=== PATIENT | male | born 1965 | race Two or more races ===

== ENCOUNTER 2021-02-24 15:46 | Observation (INO) | payer BC ==
[~2021-02-24] VITALS: Ht 180.3 cm; Wt 106.5 kg
--- NOTE | 2021-02-24 16:07 | PHYS DOC ---
Past History Past Medical History: Hypertension Adult General Chief Complaint Chief Complaint: FLU SYMPTOM HPI HPI Patient is a 65-year-old male who presents for lightheadedness. Onset was this morning shortly after waking up. Nothing known makes better or worse. States he has hardly eaten all day because of generalized feelings of nausea without any emesis. He has no known sick contacts or recent travel. Associated symptoms include generalized weakness, lightheadedness, subjective diaphoresis and chills, nausea. He denies measured fever greater than 100.4, vision changes, chest pain, shortness of breath, abdominal pain, motor or sensory fu nction changes, UTI-like symptoms, neuro symptoms. Only medical condition he sees and is currently being treated for by PCP is hypertension for which he takes lisinopril, he reports taking this today. Also states he is a former smoker and currently abuses alcohol most days, admits to drinking 1 pint of liquor nightly withdrawal last drink yesterday. Denies ever suffering alcoholic withdrawals, has never been hospitalized for this before Review of Systems Review of Systems Fourteen body systems of review of systems have been reviewed. See HPI for pertinent positives and negative responses, other echeverria all other systems are negative, non-pertinent or non-contributory Physical Exam Physical Exam Constitutional: Well developed, well nourished, no acute distress, non-toxic appearance. HENT: Normocephalic, atraumatic, bilateral external ears normal, oropharynx moist, no oral exudates, nose normal. Eyes: PERRLA, EOMI, conjunctiva normal, no discharge. Neck: Normal range of motion, no tenderness, supple, no stridor. Cardiovascular: Heart rate regular, sinus rhythm, no murmurs rubs or gallops Lungs & Thorax: Bilateral breath sounds clear to auscultation Abdomen: Bowel sounds normal, soft, no tenderness, no masses, no pulsatile masses. Nonsurgical abdomen, no peritoneal signs Skin: Warm, dry, no erythema, no rash. Back: No tenderness, no CVA tenderness. Extremities: No tenderness, no cyanosis, no clubbing, ROM intact, no edema. Neurologic: Alert and oriented X 3, grossly normal motor & sensory function, no focal deficits noted. Psychologic: Affect normal, judgement normal, mood normal. Current Patient Data Vital Signs Vital Signs Date Time Temp Pulse Resp B/P (MAP) Pulse Ox O2 Delivery O2 Flow Rate FiO2 02/24/21 15:46 98.2 79 20 178/87 (117) 96 Room Air Vital Signs Date Time Temp Pulse Resp B/P (MAP) Pulse Ox O2 Delivery O2 Flow Rate FiO2 02/24/21 15:46 98.2 79 20 178/87 (117) 96 Room Air Lab Results Laboratory Tests Test 02/24/21 16:10 02/24/21 16:28 Glucose (Fingerstick) 145 mg/dL White Blood Count 5.1 x10^3/uL Red Blood Count 4.44 x10^6/uL Hemoglobin 15.3 g/dL Hematocrit 44.7 % Mean Corpuscular Volume 101 fL Mean Corpuscular Hemoglobin 35 pg Mean Corpuscular Hemoglobin Concent 34 g/dL Red Cell Distribution Width 16.2 % Platelet Count 127 x10^3/uL Neutrophils (%) (Auto) 61 % Lymphocytes (%) (Auto) 25 % Monocytes (%) (Auto) 12 % Eosinophils (%) (Auto) 0 % Basophils (%) (Auto) 1 % Neutrophils # (Auto) 3.1 x10^3uL Lymphocytes # (Auto) 1.3 x10^3/uL Monocytes # (Auto) 0.6 x10^3/uL Eosinophils # (Auto) 0.0 x10^3/uL Basophils # (Auto) 0.1 x10^3/uL Sodium Level 142 mmol/L Potassium Level 3.5 mmol/L Chloride Level 104 mmol/L Carbon Dioxide Level 25 mmol/L Anion Gap 13 Blood Urea Nitrogen 7 mg/dL Creatinine 0.6 mg/dL Estimated GFR (Cockcroft-Gault) 138.9 BUN/Creatinine Ratio 12 Glucose Level 148 mg/dL Calcium Level 8.4 mg/dL Total Bilirubin 1.1 mg/dL Aspartate Amino Transf (AST/SGOT) 97 U/L Alanine Aminotransferase (ALT/SGPT) 68 U/L Alkaline Phosphatase 96 U/L Troponin I Quantitative < 0.017 ng/mL Total Protein 7.7 g/dL Albumin 3.7 g/dL Albumin/Globulin Ratio 0.9 Ethyl Alcohol Level 15 mg/dL Current Medications Medications (Trade) Dose Ordered Sig/Loren Route PRN Reason Start Time Stop Time Status Last Admin Dose Admin Sodium Chloride 1,000 ml @ 1,000 mls/hr 1X ONCE IV 02/24/21 16:15 02/24/21 17:14 DC 02/24/21 16:30 Thiamine HCl 100 mg/Sodium Chloride 51 ml @ 102 mls/hr DAILY IV 02/24/21 17:00 Ondansetron HCl (Zofran) 4 mg 1X ONCE IVP 02/24/21 16:15 02/24/21 16:22 DC Pantoprazole Sodium (Protonix Vial) 40 mg 1X ONCE IVP 02/24/21 16:15 02/24/21 16:22 DC Lorazepam (Ativan Inj) 1 mg 1X ONCE IVP 02/24/21 17:45 02/24/21 17:46 UNV Ondansetron HCl (Zofran) 4 mg PRN Q4HRS PRN IVP NAUSEA/VOMITING 02/24/21 17:45 02/25/21 17:44 UNV Sodium Chloride 1,000 ml @ 150 mls/hr Q6H40M IV 02/24/21 17:45 02/25/21 17:44 UNV Folic Acid (Folic Acid) 1 mg DAILY PO 03/01/21 09:00 UNV Thiamine HCl (Vitamin B-1) 100 mg DAILY PO 03/01/21 09:00 UNV EKG EKG EKG ordered and interpreted by myself at 1616 hrs. as sinus rhythm at 79 bpm, unremarkable intervals, left axis deviation, no acute ischemic findings, no STEMI Radiology/Procedures Radiology/Procedures XR CHEST 1V Clinical History: Reason: lightheadedness / Spl. Instructions: / History: Technique: AP view of the chest was obtained at 02/24/2021 4:19 PM. Comparison: None. Findings: The cardiomediastinal silhouette is normal. The pulmonary vasculature is normal. The lungs and pleural margins are clear. Impression: No evidence of an acute cardiopulmonary process. Electronically signed by: Sabino Schofield III, MD (02/24/2021 5:17 PM) [facility] Heart Score C/O Chest Pain: No HEART Score for Chest Pain: HEART Score for Chest Pain Response (Comments) Value Age >45 - < 65 1 Risk Factors 1 or 2 Risk Factors 1 Total 2 Risk Factors: Risk Factors: DM, Current or recent (<one month) smoker, HTN, HLP, family history of CAD, obesity. Risk Scores: Risk Factors: DM, Current or recent (<one month) smoker, HTN, HLP, family history of CAD, obesity. Course & Med Decision Making Course & Med Decision Making Hemodynamically stable with HPI concerning for potential alcoholic withdrawals. Physical exam grossly nonconcerning however patient diaphoretic and unsteady at times on his feet Comprehensive ER work-up performed and grossly nonconcerning. With that said, patient high risk for alcohol withdrawal based on presentation. Unsafe to disposition home; at minimum plan admission for home safety evaluation, social and physical therapy evaluations, possible placement Hospitalist contacted and case discussed, Dr. Rodas agreed for need of admission and accepted patient under his care Patient given 2 mg Ativan for symptoms, 1 L IV normal saline administered. Updated on proposed plan of care that involved admission, patient amenable. All questions and concerns addressed prior to hospital admission Dragon Disclaimer Dragon Disclaimer This electronic medical record was generated, in whole or in part, using a voice recognition dictation system. Departure Departure: Impression: Primary Impression: Alcohol abuse Additional Impression: Nausea Disposition: ADMITTED INPT THIS HOSP Admitting Physician: Sergio Rodas Condition: STABLE Referrals: DAVID PATEL MD (PCP) Problem Qualifiers MAGGIE GAVIN DO Feb 24, 2021 16:07
[2021-02-24] MEDS ORDERED: IV NORMAL SALINE 1,000ML 1,000 ML IV ONE (16:15)
[2021-02-24] MEDS ORDERED: PANTOPRAZOLE IV 40 MG VIAL. IVP ONE (16:15)
[2021-02-24] MEDS ORDERED: ONDANSETRON PF 4 MG/2 ML VIAL. IVP ONE (16:15)
--- NOTE | 2021-02-24 16:20 | EKG ---
[address] [address] Test Date: 2021-02-24 Test Time: 16:12:39 Pat Name: JOSE G JEROME Department: Room: Gender: M Milling Planer Operator: KAVITHA : 1965 Requested By: MAGGIE GAVIN Order Number: [id number] Reading MD: Measurements Intervals [place] Rate: 79 P: 32 CA: 184 QRS: -8 QRSD: 108 T: 39 QT: 408 QTc: 469 Interpretive Statements SINUS RHYTHM LEFTWARD AXIS OTHERWISE NORMAL ECG RI6.02 No previous ECG available for comparison
[2021-02-24 16:49] LABS: BASO # 0.1 x10^3/uL (0.0-0.2); BASO % 1 % (0-3); EOS % 0 % (0-3); HEMATOCRIT 44.7 % (39.0-53.0); HEMOGLOBIN 15.3 g/dL (13.0-17.5); LYMPH # 1.3 x10^3/uL (1.0-4.8); LYMPH % 25 % (24-48); MEAN CORPUSCULAR HEMOGLOBIN 35 pg (25-35); MEAN CORPUSCULAR HGB CONC 34 g/dL (31-37); MEAN CORPUSCULAR VOLUME 101 fL (79-100); MONO # 0.6 x10^3/uL (0.0-1.1); MONO % 12 % (0-9); NEUT # 3.1 x10^3uL (1.8-7.7); NEUT % 61 % (31-73); PLATELET COUNT 127 x10^3/uL (140-400); RED BLOOD COUNT 4.44 x10^6/uL (4.30-5.70); RED CELL DISTRIBUTION WIDTH 16.2 % (11.5-14.5); WHITE BLOOD COUNT 5.1 x10^3/uL (4.0-11.0)
[2021-02-24 16:54] LABS: CALCIUM 8.4 mg/dL (8.5-10.1); CREATININE 0.6 mg/dL (0.7-1.3); GFR 138.9; POTASSIUM 3.5 mmol/L (3.5-5.1)
[2021-02-24] MEDS: THIAMINE INJ 100 MG in IV NORMAL SALINE 50ML 50 ML IV SCH ×2 (17:00→22:10)
[2021-02-24 17:01] LABS: ALBUMIN 3.7 g/dL (3.4-5.0); ALBUMIN/GLOBULIN RATIO 0.9 (1.0-1.7); TOTAL BILIRUBIN 1.1 mg/dL (0.2-1.0); TOTAL PROTEIN 7.7 g/dL (6.4-8.2)
--- NOTE | 2021-02-24 17:19 | RAD ---
XR CHEST 1V Clinical History: Reason: lightheadedness / Spl. Instructions: / History: Technique: AP view of the chest was obtained at 02/24/2021 4:19 PM. Comparison: None. Findings: The cardiomediastinal silhouette is normal. The pulmonary vasculature is normal. The lungs and pleura l margins are clear. Impression: No evidence of an acute cardiopulmonary process. Electronically signed by: Sabino Schofield III, MD (02/24/2021 5:17 PM) [facility]
[2021-02-24] MEDS ORDERED: ONDANSETRON PF 4 MG/2 ML VIAL. IVP PRN (17:45)
[2021-02-24] MEDS ORDERED: IV NORMAL SALINE 50ML 50 ML ONE (17:59)
[2021-02-24] MEDS ORDERED: THIAMINE 200 MG/2 ML VIAL. IV ONE (17:59)
[2021-02-24] MEDS: FOLIC ACID 1 MG TABLET PO SCH (18:03)
[2021-02-24] MEDS: IV NORMAL SALINE 1,000ML 1,000 ML IV SCH (18:04)
--- NOTE | 2021-02-24 18:43 | RAD ---
CT HEAD INDICATION: Reason: DIZZY / Spl. Instructions: / History: COMPARISON: None Available. Exposure: One or more of the following individualized dose reduction techniques were utilized for thi s examination: 1. Automated exposure control 2. Adjustment of the mA and/or kV according to patient size 3. Use of iterative reconstruction technique TECHNIQUE: 5 mm contiguous axial images were obtained from the skull base to the vertex in both bone and soft tissue algorithm. FINDINGS: Mild bilateral periventricular white matter hypodensities likely chronic small vessel ischemic diseas e. No evidence of acute intracranial hemorrhage. No extra-axial fluid collections. No mass effect or midline shift. Ventricular size is appropriate. Basal cisterns are patent. No fractures identified.Donnelly-white differentiation is preserved.Globes and orbits are within normal l imits. Paranasal sinuses and mastoid air cells are clear. IMPRESSION: No acute intracranial findings. Electronically signed by: Juan Temple MD (02/24/2021 6:41 PM) [id number]
[2021-02-24 19:45] VITALS: BP 175/93
[2021-02-24] MEDS ORDERED: THIAMINE INJ 100 MG in IV NORMAL SALINE 50ML 50 ML IV ONE (21:30)
[2021-02-24] MEDS ORDERED: diphenhydrAMINE 50 MG/ML VIAL IVP PRN (22:45)
[2021-02-24] MEDS ORDERED: cloNIDine HCL 0.1 MG TABLET PO PRN (22:45)
[2021-02-24] MEDS ORDERED: chlordiazePOXIDE HCL 25 MG CAPSULE PO PRN ×2 (22:45)
[2021-02-24] MEDS ORDERED: PARO20TA3 PO (22:50)
[2021-02-24] MEDS ORDERED: LISI20TA18 PO (22:50)
[2021-02-24 23:00] VITALS: BP 171/84
[2021-02-25] MEDS: IV NORMAL SALINE 1,000ML 1,000 ML IV SCH (04:55)
[2021-02-25 05:28] VITALS: BP 172/89
[2021-02-25] MEDS: FOLIC ACID 1 MG TABLET PO SCH (08:20)
[2021-02-25] MEDS ORDERED: LISINOPRIL 20 MG TABLET PO SCH (09:00)
[2021-02-25] MEDS ORDERED: PARoxetine 20 MG TABLET PO SCH (09:00)
[2021-02-25] MEDS ORDERED: THIAMINE 100 MG TABLET. PO SCH ×2 (09:00)
[2021-02-25] MEDS ORDERED: MULTIVITAMIN with MINERAL TABLET. PO SCH (09:00)
[2021-02-25 10:20] VITALS: BP 187/91
--- NOTE | 2021-02-25 10:35 | HP ---
ADMIT DATE: 02/24/2021 ATTENDING PHYSICIAN: Dr. Ernandez. CHIEF COMPLAINT: Nausea and lightheadedness. HISTORY OF PRESENT ILLNESS: The patient is a very pleasant 55-year-old gentleman admitted to the ED with new onset of vague symptoms of nausea, dry heaves, lightheadedness, and not feeling well, low-grade temperature of 100.4 degrees Fahrenheit. No recent COVID exposure. He has had some dysuria, but he also drinks to excess usually a bottle of vodka daily. He has been under a lot of stress with home situation. 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 He is a former smoker. He has hypertension. He has been prescribed with generalized anxiety. However, he was only taking his Paxil intermittently and therefore has not been on the other antidepressants and antianxiety medication. The patient is admitted then with general symptoms of chronic alcoholism and dehydration. PAST MEDICAL HISTORY: Significant for essential hypertension. ALLERGIES: He has no recorded drug allergies. SOCIAL HISTORY: He is a nonsmoker, drinking history as noted. CURRENT MEDICATIONS: Include Paxil 20 mg daily and lisinopril 20 mg daily. FAMILY HISTORY: He is adopted. He does not know the medical history of his biological parents. He is currently retired, lives with his , 3 children, 2 daughters and a son are alive and healthy. He has 1 granddaughter. REVIEW OF SYSTEMS: Significant for the generalized anxiety, essential hypertension. Vodka is his alcohol of choice. No DUIs in the past. He has not had any seizures or DTs, some nausea, dry heaves. No vomiting. All other systems reviewed and turned to be negative. PHYSICAL EXAMINATION: GENERAL: When I saw him, this is a very pleasant, middle-aged gentleman. INITIAL VITAL SIGNS: Here showed a blood pressure of 167/88, pulse is 83 and regular, temperature 98.7 degrees Fahrenheit, oxygen saturation 94% on room air. HEENT: Head is without trauma. Pupils are reactive. Sclerae nonicteric. Oropharynx is clear. NECK: Supple, no bruits identified. LUNGS: Clear to auscultation. CARDIOVASCULAR: Showed regular heart tones. No gallops. ABDOMEN: Soft. EXTREMITIES: Without edema. NEUROLOGIC: Focally intact. He has a bit of a slight tremor. Speech is fluent. He is quite sober. SKIN: Warm and dry. PERTINENT LABORATORY STUDIES: His hemoglobin is 15.3 g/dL, white count 5100. Electrolytes are within normal range. Transaminases normal. Nonfasting blood sugar 148. Cardiac enzymes negative. Bilirubin is 1.1, AST is 97, ALT 68. The obligatory chest x-ray was clear and the CT of the head showed no acute intracranial process. ASSESSMENT: 1. A 55-year-old gentleman with mild dehydration. 2. Chronic alcoholism. 3. Alcoholic gastritis. 4. Underlying depression with anxiety. 5. Essential hypertension. PLAN: 1. Admit to the observation status. 2. CIWA protocol. 3. Advance diet as tolerated. 4. Continue home meds. 5. I recommend a scheduled anxiolytic as well as antidepressant medication. MARIETTA ERNANDEZ MD DR: NEERAJ/kaden JOB#: [id number] / [id number] DAVID Pastrana MD
--- NOTE | 2021-02-25 12:21 | DS ---
DATE OF DISCHARGE: 02/25/2021 ATTENDING PHYSICIAN: Dr. Ernandez. FINAL DISCHARGE DIAGNOSES: 1. Alcoholic gastritis. 2. Chronic alcoholism. 3. Essential hypertension. 4. Mild dehydration. 5. Underlying depression with anxiety. HISTORY OF PRESENT ILLNESS: The patient is a pleasant 55-year-old gentleman who drinks vodka to excess. He presented with nausea, vomiting, vague symptoms, some GI discomfort and dry heaves. PHYSICAL EXAMINATION: Please see my dictated note. PERTINENT LABORATORY AND X-RAY STUDIES: On admission, his white count was normal. Transaminases are within normal range. His hemoglobin was 15.3 g/dL with a white count of 5100. MCV was elevated at 101. Sodium 142 mEq, potassium 3.5 mEq, creatinine 0.6 mg percent, total bilirubin is 1.1, AST 97, ALT 68. Cardiac enzymes negative for coronary ischemia. COURSE IN THE HOSPITAL: The patient was admitted. He was started on gentle IV hydration. We did the CIWA protocol, he calmed down. There is no impending delirium tremens. I had a long discussion with the patient, he is currently self-treating for underlying depression and anxiety. I therefore recommended that he increase his Paxil dose to 40 mg p.o. daily. I wrote a new script. He should not waste the 20 mg tabs. In addition, I recommended Xanax 0.5 mg b.i.d. He needs to continue his lisinopril. Strong encouragement to avoid alcohol altogether. I think he is agreeable and understands what is going on. On the next hospital day, he was quite alert. There was no evidence of impending withdrawal. He was calmer with a CIWA protocol. He was discharged home then with new scripts for continued Paxil daily, Xanax 0.5 mg b.i.d. and he already has lisinopril. He will continue 20 mg p.o. daily. The patient was discharged from our hospital in stable condition with explicit instructions and followup care. MARIETTA ERNANDEZ MD DR: NEERAJ/kaden JOB#: [id number] / [id number] DAVID Pastrana MD
[2021-03-01] MEDS ORDERED: MULTIVITAMIN with MINERAL TABLET. PO SCH (09:00)
[2021-03-01] MEDS ORDERED: THIAMINE 100 MG TABLET. PO SCH (09:00)
== END 2021-02-25 10:53 | disposition home or self-care (01) ==
LOC: ER 15:46 → INTOOBSV 19:45 → 1 SOUTH 19:45
PROVIDERS: ADMIT Hospitalist; ATTEND Hospitalist
DX: K29.20 Alcoholic gastritis without bleeding (principal); F10.20 Alcohol dependence, uncomplicated; I10 Essential (primary) hypertension; E86.0 Dehydration; F41.9 Anxiety disorder, unspecified; F32.9 Major depressive disorder, single episode, unspecified; Z87.891 Personal history of nicotine dependence; Z79.899 Other long term (current) drug therapy
CPT/HCPCS: 36415; 70450; 71045; 80053; 82947; 84484; 85025; 93005; 96361; 96365; 96375; 99285; C9113; G0378; G0480; J2060; J2405; J7030; G0379

== ENCOUNTER 2022-04-07 06:30 | Emergency (ER) | payer BC ==
[~2022-04-07] VITALS: Ht 180.3 cm; Wt 104.5 kg
[~2022-04-07 06:30] MED LIST: LISI20TA18 PO; PARO20TA3 PO
--- NOTE | 2022-04-07 06:59 | PHYS DOC ---
Past History Past Medical History: Hypertension Past Surgical History: No Surgical History Alcohol Use: Heavy General Adult EDM: Chief Complaint: Nausea, vomiting HPI: HPI: 57-year-old male presents with a chief complaint of nausea and dry heaves. The patient also reports that he has had some chest discomfort. He describes as a general feeling of illness. He does not currently have chest pain. He is very nauseated. Patient admits to having history of anxiety attacks. He states feeling very shaky. Not sure if he has had a fever at home. The patient also reports swelling of his bilateral feet. This is not typical for him. It is better today than yesterday. Review of Systems: Review of Systems: Constitutional: Denies fever or chills Eyes: Denies change in visual acuity HENT: Denies nasal congestion or sore throat Respiratory: Denies cough or shortness of breath Cardiovascular: Chest pain GI: nausea, vomiting. Denies abdominal pain, bloody stools or diarrhea : Denies dysuria Musculoskeletal: Denies back pain or joint pain Integument: Denies rash Neurologic: Denies headache, focal weakness or sensory changes Endocrine: Denies polyuria or polydipsia Lymphatic: Denies swollen glands Psychiatric: Anxious Allergies: Allergies: Allergies Coded Allergies Type Severity Reaction Last Updated Verified No Known Drug Allergies 02/24/21 No Physical Exam: PE: Constitutional: Well developed, well nourished, obese, generalized shakiness, non-toxic appearance. [] HENT: Normocephalic, atraumatic, bilateral external ears normal, oropharynx moist, no oral exudates, nose normal. [] Eyes: PERRLA, EOMI, conjunctiva normal, no discharge. [] Neck: Normal range of motion, no tenderness, supple, no stridor. [] Cardiovascular: Heart rate 77, regular rhythm, no murmur [] Lungs & Thorax: Bilateral breath sounds clear to auscultation [] Abdomen: Bowel sounds normal, soft, no tenderness, no masses, no pulsatile masses. [] Skin: Warm, dry, no erythema, no rash. [] Back: No tenderness, no CVA tenderness. [] Extremities: no tenderness, no cyanosis, no clubbing, ROM intact, 2+ edema bilateral feet. [] Neurologic: Alert and oriented X 3, normal motor function, normal sensory function, no focal deficits noted. [] Psychologic: Affect normal, judgement normal, mood anxious. [] Current Patient Data: Vital Signs: Vital Signs Date Time Temp Pulse Resp B/P (MAP) Pulse Ox O2 Delivery O2 Flow Rate FiO2 04/07/22 06:30 99.1 100 43 185/91 (122) 97 Room Air EKG: EKG: Sinus rhythm, rate 77, normal axis, no ST elevation depression. [] Radiology/Procedures: Radiology/Procedures: [] Impressions: XR CHEST 1V 04/07/2022 6:55 AM INDICATION: Palpitations, shortness of air COMPARISON: 02/24/2021 TECHNIQUE: Portable frontal view of the chest is provided. FINDINGS: The cardiomediastinal silhouette is within normal limits. Lungs are clear. Chronic elevation left hemidiaphragm. There are no significant pleural effusions. There is no pulmonary vascular congestion. No pneumothorax. No suspicious osseous abnormality. IMPRESSION: There is no acute cardiopulmonary process. Electronically signed by: Blossom Hendricks MD (04/07/2022 7:00 AM) [facility] DICTATED AND SIGNED BY: BLOSSOM HENDRICKS MD DATE: 04/07/22 0700 CC: AMY WOMACK DO; DAVID PATEL MD ~ Heart Score: C/O Chest Pain: Yes HEART Score for Chest Pain: HEART Score for Chest Pain Response (Comments) Value History Slighlty/Non-Suspicious 0 ECG Normal 0 Age >45 - < 65 1 Risk Factors 1 or 2 Risk Factors 1 Troponin < Normal Limit 0 Total 2 Risk Factors: Risk Factors: DM, Current or recent (<one month) smoker, HTN, HLP, family history of CAD, obesity. Risk Scores: Score 0 - 3: 2.5% MACE over next 6 weeks - Discharge Home Score 4 - 6: 20.3% MACE over next 6 weeks - Admit for Clinical Observation Score 7 - 10: 72.7% MACE over next 6 weeks - Early Invasive Strategies Course & Med Decision Making: Course & Med Decision Making Pertinent Labs and Imaging studies reviewed. (See chart for details) The nurse had further discussion was with the patient and family. Discovered t hat the patient drinks alcohol very heavily daily. His last drink was noon yesterday. His shakiness could be related to withdrawal symptoms. I will give him 2 mg of Ativan and monitor its effect. The Ativan made the patient much less shaky and his blood pressure improved. He did not make him drowsy. His labs are significant for elevated liver enzymes. He also has an elevated anion gap which is likely due to his alcohol consumption. I have given him a folic acid p.o. His EKG is unremarkable. Chest x-ray is negative for acute findings. Troponin is within normal limits. proBNP is within normal limits. I really think the patient's symptoms are related to his alcohol consumption. His alcohol level is 64 but he likely lives at a much higher level all the time. Advised that he seek alcohol treatment program and stop drinking. He is stable for discharge at this time. [] Dragon Disclaimer: Dragon Disclaimer: This electronic medical record was generated, in whole or in part, using a voice recognition dictation system. Departure Departure: Impression: Primary Impression: Alcohol withdrawal Additional Impression: Nausea & vomiting Disposition: 01 HOME / SELF CARE / HOMELESS Condition: STABLE Referrals: DAVID PATEL MD (PCP) Patient Instructions: Alcohol Problems, Alcohol Withdrawal, [id number] AMY WOMACK DO April 07, 2022 06:59
[2022-04-07] MEDS ORDERED: ONDANSETRON PF 4 MG/2 ML VIAL. IVP ONE (07:00)
[2022-04-07] MEDS ORDERED: IV NORMAL SALINE 1,000ML 1,000 ML IV ONE (07:00)
--- NOTE | 2022-04-07 07:02 | RAD ---
XR CHEST 1V 04/07/2022 6:55 AM INDICATION: Palpitations, shortness of air COMPARISON: 02/24/2021 TECHNIQUE: Portable frontal view of the chest is provided. FINDINGS: The cardiomediastinal silhouette is within normal limits. Lungs are clear. Chronic elevation left hem idiaphragm. There are no significant pleural effusions. There is no pulmonary vascular congestion. No pneumothora x. No suspicious osseous abnormality. IMPRESSION: There is no acute cardiopulmonary process. Electronically signed by: Carline Hendricks MD (04/07/2022 7:00 AM) [facility]
[2022-04-07 07:36] VITALS: BP 176/88
[2022-04-07 08:03] LABS: BASO # 0.1 x10^3/uL (0.0-0.2); BASO % 2 % (0-3); EOS % 0 % (0-3); HEMATOCRIT 42.8 % (39.0-53.0); HEMOGLOBIN 14.5 g/dL (13.0-17.5); LYMPH # 0.6 x10^3/uL (1.0-4.8); LYMPH % 13 % (24-48); MEAN CORPUSCULAR HEMOGLOBIN 36 pg (25-35); MEAN CORPUSCULAR HGB CONC 34 g/dL (31-37); MEAN CORPUSCULAR VOLUME 107 fL (79-100); MONO # 0.6 x10^3/uL (0.0-1.1); MONO % 13 % (0-9); NEUT # 3.4 x10^3uL (1.8-7.7); NEUT % 73 % (31-73); PLATELET COUNT 117 x10^3/uL (140-400); RED BLOOD COUNT 4.01 x10^6/uL (4.30-5.70); RED CELL DISTRIBUTION WIDTH 13.7 % (11.5-14.5); WHITE BLOOD COUNT 4.7 x10^3/uL (4.0-11.0)
[2022-04-07 08:15] LABS: CALCIUM 8.4 mg/dL (8.5-10.1); CREATININE 0.6 mg/dL (0.7-1.3); GFR 137.9; POTASSIUM 3.4 mmol/L (3.5-5.1)
[2022-04-07 08:21] LABS: ALBUMIN 3.4 g/dL (3.4-5.0); ALBUMIN/GLOBULIN RATIO 0.8 (1.0-1.7); TOTAL BILIRUBIN 1.6 mg/dL (0.2-1.0); TOTAL PROTEIN 7.9 g/dL (6.4-8.2)
[2022-04-07] MEDS ORDERED: FOLIC ACID 1 MG TABLET PO ONE (08:30)
== END 2022-04-07 08:55 | disposition home or self-care (01) ==
LOC: ER 06:30
DX: R11.2 Nausea with vomiting, unspecified (principal); F10.239 Alcohol dependence with withdrawal, unspecified; I10 Essential (primary) hypertension; Y90.9 Presence of alcohol in blood, level not specified
CPT/HCPCS: 36415; 71045; 80053; 83880; 84484; 85025; 93005; 96361; 96374; 96375; 99285; G0480; J2060; J2405; J7030